=== PATIENT | male | born 1980 | race Caucasian/White ===

== ENCOUNTER 2023-11-23 20:52 | Emergency (ER) | payer OTHER ==
[2023-11-23 21:48] LABS: Specific Gravity 1.029 (1.005-1.030); Sqamous Epithelial <5 /HPF (None Seen); Urine Bacteria None Seen /HPF (<20); Urine Bilirubin NEGATIVE (Negative); Urine Blood Negative (Negative); Urine Clarity Clear (Clear); Urine Color Yellow (Yellow); Urine Culture Reflex Order NOT NEEDED; Urine Glucose NEGATIVE (Negative); Urine Ketones NEGATIVE (Negative); Urine Microscopic Reflex YN ORDER UMIC; Urine Mucus Slight /HPF (None Seen); Urine Nitrite NEGATIVE (Negative); Urine Protein TRACE (Negative); Urine RBC <5 /HPF (None Seen); Urine Urobilinogen Normal (Normal); Urine WBC None Seen /HPF (<5)
[2023-11-23] MEDS ORDERED: ONDANSETRON 4 MG/2 ML VIAL ONE (21:48)
[2023-11-23 21:49] LABS: Absolute Basophils 0.1 K/uL (0-0.5); Absolute Eosinophils 0.3 K/uL (0-0.5); Absolute Monocytes 1.1 K/uL (0.1-1.3); Basophils % 0.5 % (0-1.3); Eosinophils % 2.6 % (0-4.4); Hematocrit 37.7 % (39.6-49.0); Hemoglobin 12.9 g/dL (13.6-17.9); Lymphocytes % 19.2 % (15.3-44.8); MCH 30.5 pg (27.0-35.0); MCHC 34.1 g/dL (32.0-36.0); MCV 89.4 fL (80-100); Monocytes % 10.6 % (3.3-12.3); Neutrophils % 67.1 % (41.7-73.7); Platelets 254 thou/uL (152-406); RBC Red Blood Cell Count 4.22 M/uL (4.33-5.43); Red Cell Distribution Width 14.1 % (12.1-15.2)
[2023-11-23] MEDS ORDERED: NA CHLORIDE 0.9% 1,000 ML ONE (21:49)
[2023-11-23] MEDS ORDERED: LORazepam 2 MG/ML VIAL ONE (21:49)
[2023-11-23] MEDS ORDERED: KETOROLAC 30 MG/ML INJ ONE (21:49)
[2023-11-23 21:57] LABS: PT Prothrombin Time 10.4 SECONDS (9.4-12.5); PTT, Activated Partial Thromb 30.9 SECONDS (24.3-36.9); Protime INR 0.93
[2023-11-23 21:58] LABS: Barbiturates NEGATIVE (NEGATIVE); Benzodiazepines NEGATIVE (NEGATIVE); Cocaine NEGATIVE (NEGATIVE); METHAMPHETAM NEGATIVE (NEGATIVE); Methadone NEGATIVE (NEGATIVE); Opiates NEGATIVE (NEGATIVE); Phencyclidine NEGATIVE (NEGATIVE); THC Cannibis NEGATIVE (NEGATIVE)
[2023-11-23 22:05] LABS: ALT/SGPT 19 U/L (16-61); AST/SGOT 18 U/L (15-37); Albumin 3.6 g/dL (3.4-5.0); Alkaline Phosphatase 76 U/L (45-117); BUN Blood Urea Nitrogen 26 mg/dL (7-18); Bicarbonate 26 mEq/L (21-32); Bilirubin Total 0.3 mg/dL (0.2-1.0); Globulin 3.6 g/dL (2.3-3.5); Glomerular Filtration Rate 87 ml/min (=/>90); Glucose Level 104 mg/dL (74-106); Protein, Total 7.2 g/dL (6.4-8.2); Sodium Level 137 mEq/L (136-145)
[2023-11-23 22:06] LABS: Bilirubin Direct < 0.2 mg/dL (0-0.2); Bilirubin Indirect, Calculated 0.1 mg/dL (0.2-0.8)
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
[2023-11-24 05:40] VITALS: BP 120/85; TEMP 97.8; O2SAT 96
--- NOTE | 2023-11-24 20:09 | RAD REPORT ---
EXAM DESCRIPTION: RAD - Lumbar Spine 3 Views - 11/23/2023 10:45 pm CLINICAL HISTORY: The patient is 43 years old and is Male; Lower back pain. TECHNIQUE: Frontal and lateral views of the lumbar spine and sacrum. COMPARISON: CT Abdomen Pelvis 03/25/2020. FINDINGS: VERTEBRAE: Mild dextro scoliotic curvature of the inferior lumbar spine. Approximately 1.1 cm of anterolisthesis of L5 on S1, which appears new from 2020 exam. No acute fracture. SACRUM/COCCYX: Unremarkable as visualized. No acute fracture. DISC SPACES: Cannot reliably evaluate for neuroforaminal stenosis in the absence of oblique images. SOFT TISSUES: Unremarkable VASCULATURE: Left-sided intrapelvic phleboliths. GASTROINTESTINAL TRACT: Moderate colonic stool burden with nonobstructed bowel gas pattern. IMPRESSION: 1. Approximately 1.1 cm of anterolisthesis of L5 on S1, which appears new from 2020 ex am. Consider further evaluation by lumbar spine MRI (if there is clinical concern for neuroforaminal stenosis or root impingement, marrow edema). 2. Otherwise, no other acute findings in the lumbar spine. Electronically signed by: Richard Barrera MD 11/23/2023 11:45 PM CDT RP Due to temporary technical issues with the PACS/Fluency reporting system, reports are being signed by the in house radiologists without review as a courtesy to insure prompt reporting. The interpreting radiologist is fully responsible for the content of the report.
--- NOTE | 2023-11-26 17:06 | EKG ---
Test Date: 2023-11-23 Test Time: 21:46:06 Deli Clerk: LOPEZ MEASUREMENT RESULTS: Intervals: Rate: 68 WA: 186 QRSD: 90 QT: 382 QTc: 406 [place]: P: 68 WA: 186 QRS: 90 T: 68 INTERPRETIVE STATEMENTS: Normal sinus rhythm Normal ECG No previous ECG available for comparison Electronically Signed On 11-26-23 17:00:37 CDT by Aram Bai
== END 2023-11-24 05:25 ==
LOC: ER 20:52
DX: R45.851 Suicidal ideations (principal); F41.0 Panic disorder [episodic paroxysmal anxiety]; F25.1 Schizoaffective disorder, depressive type; F23 Brief psychotic disorder; F17.210 Nicotine dependence, cigarettes, uncomplicated
CPT/HCPCS: 96361; 93005; 85025; 81001; 80048; 36415; 85610; 80076; 85730; 80307; 72100; 96375; 96374; 99285; 80143; 80179; 82077; J2405; J7030